=== PATIENT | male | born 2005 | race Caucasian/White ===

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

== ENCOUNTER 2025-02-10 18:14 | Emergency (ER) | payer MEDICAID, OTHER | END 2025-02-10 19:12 | disposition home or self-care (01) | LOC: FB.ED 18:14 | DX: K04.7 Periapical abscess without sinus (principal) | CPT/HCPCS: 96372; 99283; J0696 ==

== ENCOUNTER 2025-02-27 23:18 | Observation (INO) | payer MEDICAID ==
[2025-02-27] MEDS ORDERED: Sodium Chloride 0.9% 10 ML Syringe FLUSH PRN (23:41)
[2025-02-28 00:10] LABS: BASOPHILS ABSOLUTE AUTO 0.0 x10-3/uL (0.0-0.3); BASOPHILS PERCENT AUTO 0.5 % (0.3-3.8); EOSINOPHILS ABSOLUTE AUTO 0.2 x10-3/uL (0.0-0.6); EOSINOPHILS PERCENT AUTO 2.0 % (0.1-6.8); LYMPHOCYTES ABSOLUTE AUTO 2.5 x10-3/uL (0.5-4.5); LYMPHOCYTES PERCENT AUTO 26.8 % (15.8-45.3); MEAN PLATELET VOLUME 8.7 fL (6.7-11.0); MONOCYTES ABSOLUTE AUTO 0.8 x10-3/uL (0.0-1.2); MONOCYTES PERCENT AUTO 9.3 % (5.5-15.2); NEUTROPHILS ABSOLUTE AUTO 5.6 x10-3/uL (1.7-6.9); NEUTROPHILS PERCENT AUTO 61.4 % (40.3-71.8); PLATELET COUNT,PLT 212 x10(3)uL (117-477); RED BLOOD CELL COUNT 5.29 x10(6)uL (3.90-5.90); RED CELL DISTRIBUTION WIDTH 13.2 % (12.4-15.0); WHITE BLOOD CELL COUNT,WBC 9.2 x10-3/uL (3.2-10.1)
[2025-02-28 00:16] LABS: BLOOD UREA NITROGEN,BUN 12 mg/dL (7-18); CARBON DIOXIDE,CO2 31 mmol/L (21-32); CHLORIDE,CL 102 mmol/L (100-110); CREATININE 0.8 mg/dL (0.70-1.30); EST CRCL DRUG DOSING (CG) 163.01 mL/min; ESTIMATED GFR 131 mL/min (>60); GLUCOSE RANDOM 92 mg/dL (80-116); POTASSIUM,K 3.7 mmol/L (3.5-5.3); SODIUM,NA 141 mmol/L (135-145)
[2025-02-28 00:22] LABS: A/G RATIO 1.1; ALANINE AMINOTRANSFERASE,ALT 23 U/L (12-36); ASPARTATE AMNIOTRANSFERASE,AST 12 IU/L (5-25); BILIRUBIN TOTAL 0.5 mg/dL (0.1-1.2); PROTEIN TOTAL,TP 7.0 g/dL (6.0-8.0)
[2025-02-28 00:27] LABS: ETHANOL BLOOD MEDICAL < 0.03 % (<0.03)
[2025-02-28] MEDS ORDERED: Naloxone 0.4 MG/ML SDV IVPUSH PRN (00:40)
[2025-02-28 01:02] LABS: GLUCOSE,URINE NORMAL (NORMAL); OCCULT BLOOD,URINE NEGATIVE (NEGATIVE)
[2025-02-28] MEDS: Ondansetron 4 MG/2 ML SDV IVPUSH ONE (01:08)
[2025-02-28 01:10] LABS: APPEARANCE,URINE CLEAR (CLEAR)
[2025-02-28] MEDS: Iopamidol 755 Mg/ML 100 ML Bottle IV SCH (01:54)
[2025-02-28] MEDS: Ketorolac 30 MG/ML SDV IVPUSH ONE (02:14)
[2025-02-28] MEDS ORDERED: Ketorolac 15 MG/ML SDV IM PRN (08:00)
[2025-03-01] MEDS: Ondansetron 4 MG Tab.DIS PO PRN (04:52)
[2025-03-01 06:41] LABS: PLATELET COUNT,PLT 207.0 x10(3)uL (117-477); RED BLOOD CELL COUNT 5.09 x10(6)uL (3.90-5.90); RED CELL DISTRIBUTION WIDTH 13.0 % (12.4-15.0); WHITE BLOOD CELL COUNT,WBC 7.2 x10-3/uL (3.2-10.1)
== END 2025-03-01 15:52 | disposition home or self-care (01) ==
LOC: SUPCPDRO 23:18 → FB.ED 23:18 → FB.MS 02-28 02:52
PROVIDERS: ADMIT Surgery; ATTEND Surgery
DX: K65.9 Peritonitis, unspecified (principal); K63.89 Other specified diseases of intestine; E86.0 Dehydration; Z79.899 Other long term (current) drug therapy
CPT/HCPCS: 36415; 74177; 80053; 80307; 81003; 82270; 83605; 83690; 83735; 85025; 85027; 86140; 94150; 99285; J1885; J2270; J2405; J2470; J2543; J7030; Q0162; Q9967